=== PATIENT | female | born 1980 | race Caucasian/White ===

== ENCOUNTER 2018-03-12 20:35 | Emergency (ER) | payer SELFPAY ==
[~2018-03-12] VITALS: Ht 162.6 cm; Wt 100.0 kg
[2018-03-13] MEDS ORDERED: IBUPROFEN 600MG TABLET PO ONE
[2018-03-13 00:34] VITALS: BP 99/58
== END 2018-03-13 00:34 | disposition home or self-care (01) ==
LOC: ER 20:35
DX: R59.1 Generalized enlarged lymph nodes (principal); F17.200 Nicotine dependence, unspecified, uncomplicated; F41.9 Anxiety disorder, unspecified
CPT/HCPCS: 99282

== ENCOUNTER 2018-11-09 08:35 | Emergency (ER) | payer MEDICAID ==
[~2018-11-09] VITALS: Ht 162.6 cm; Wt 107.0 kg
[2018-11-09] MEDS ORDERED: ACETAMINOPHEN 325MG TABLET PO STA (09:49)
[2018-11-09 09:56] LABS: BASOPHILS % 0.9 % (0.0-2.0); EOSINOPHILS % 1.4 % (0.0-5.0); HEMATOCRIT. 33.2 % (36.0-48.0); HEMOGLOBIN. 10.3 g/dL (12.0-16.0); LYMPHOCYTES % 32.2 % (20.0-50.0); MEAN CORPUSCULAR HEMOGLOBIN 21.7 pg (28.0-32.0); MEAN CORPUSCULAR VOLUME 69.9 fL (81.0-99.0); MEAN PLATELET VOLUME 7.3 fl (7.4-10.4); MONOCYTES % 6.3 % (2.0-8.0); NEUTROPHILS % 59.2 % (40.0-76.0); PLATELET 445 x1000/uL (130-400); RED BLOOD CELL COUNT 4.75 mill/uL (4.2-5.4)
[2018-11-09 09:57] LABS: CLARITY URINE CLOUDY (CLEAR); COLOR URINE YELLOW (YELLOW); KETONES URINE NEGATIVE (NEGATIVE); LEUKOCYTE ESTERASE URINE 1+ (NEGATIVE); NITRITE URINE NEGATIVE (NEGATIVE); OCCULT BLOOD URINE 3+ (NEGATIVE); PROTEIN URINE TRACE (NEGATIVE); SPECIFIC GRAVITY URINE 1.029 (1.005-1.030); UROBILINOGEN URINE 0.2 E.U./dL (0.2-1.0)
[2018-11-09 09:59] LABS: CHLORIDE 109 mEq/L (98-107)
[2018-11-09 10:13] LABS: HCG SCREEN NEGATIVE
[2018-11-09 11:00] LABS: PLATELET ESTIMATE INCREASED
[2018-11-09 11:22] VITALS: BP 121/80
== END 2018-11-09 11:23 | disposition home or self-care (01) ==
LOC: ER 08:35
DX: N39.0 Urinary tract infection, site not specified (principal); F41.9 Anxiety disorder, unspecified; F15.10 Other stimulant abuse, uncomplicated
CPT/HCPCS: 36415; 84703; 99283